=== PATIENT | male | born 1975 | race African-American/Black ===

== ENCOUNTER 2017-03-27 04:43 | Emergency (ER) | payer SELFPAY ==
[2017-03-27 04:49] VITALS: BP 136/97; BMI 21.5
--- NOTE | 2017-03-27 05:06 | DR.GENAD ---
HPI - PCP Primary Care Physician: DONTE - HPI Comment HPI Comment: HE DENIED USE OF ILLICIT DRUGS. NO FEVER. VITAL SIGNS IN ED ARE WITHIN NORMAL LIMIT. PATIENT WANT TO STANT UP IN THE EXAM ROOM. HE IS COOPERATIVE. HE IS NOT ON ANY PRESCRIPTION MEDS. NO FAMILY HISTORY OF MENTAL ILLNESS. - Complaint/Symptoms Chief Complaint Doctors Comments: PATIENT IN ED SAID HE IS AFRAID DUE TO WHHAT HE IS FEELING. NUMBNESS TO HIS LOWER EXTREMITY AND SOME NUMBNESS IN THE UPPER BODY. HE FEEL LIKE HE WANT TO SLEEP BUT IF HE SLEEP, HE MIGHT NOT WAKE UP. Chief Complaint:: ANXIETY - Nurses notes reviewed Nurses Notes Review: Yes - Source History Provided: Patient - Mode of Arrival Mode of Arrival: Ambulatory - Timing Onset of Chief Complaint: 03/27/17 Came on: Suddenly - Duration Duration: Constant Duration: Hours - Severity Severity: Moderate PMH - PMH Past Medical History: No Past Surgical History: Yes Surgical History: Other Past Surgical History Comment: SKINGRAFTS FROM [place] - Family History History of Family Medical Conditions: Yes Family Medical History: Diabetes Mellitus, Hypertension - Social History Does patient currently use any type of tobacco product: No Have you used tobacco products in the last 12 months: No Type of Tobacco Use: None Does any household member use tobacco: No Alcohol Use: Heavy Do you use any recreational Drugs:: No Lives With: Family Lives Where: Home - infectious screening In the last 2 months have you had wt loss of >10#?: NO Have you had fever, night sweats or hemotysis?: No Have you traveled outside the country in the last 6 months?: No Isolation: Standard ROS - Review of Systems Constitutional: No Symptoms Reported. negative: Chills, Diaphoresis, Fever, Weakness, Fatigue, Loss of Appetite Eyes: No Symptoms Reported. negative: Eye Pain, Discharge ENTM: No Symptoms Reported. negative: Ear Pain, Nose Discharge, Nose Congestion , Throat Pain Respiratoy: No Symptoms Reported, Short of Breath. negative: Productive Cough, Non-Productive Cough, Wheezing, Hemoptysis Cardiovascular: Chest Pain. negative: Edema, Palpitations Gastrointestinal/Abdominal: Nausea. negative: Abdominal Pain, Vomiting Genitourinary: No Symptoms Reported. negative: Dysuria, Frequency, Hematuria Neurological: Numbness, Paresthesia Musculoskeletal: Muscle Pain Integumentary: negative: Change in Hair/Nails Endocrine: No Symptoms Reported Psychiatric: Anxiety. negative: Hallucinations, Excessive crying, Suicidal All Other Systems: Reviewed and Negative PE - Vital Signs Vitals: Temperature 98.1 F Pulse Rate 82 Respiratory Rate 22 Blood Pressure 136/97 O2 Sat by Pulse Oximetry 99 - General Limitations: No Limitations General Appearance: Alert - Head Head Exam: Normal Inspection - Eyes Eye exam: Normal Appearance - ENT ENT Exam: Normal External Ear Exam External Ear Exam: Normal External Inspection TM/Canal Exam: Bilateral Normal Nose Exam: Normal Nose Exam Mouth Exam: Normal Inspection Throat Exam: Normal Inspection - Neck Neck Exam: Trachea Midline - Chest Chest Inspection: Symmetric Chest Wall Rise - Respiratory Respiratory Exam: Normal Lung Sounds Bilat Respiratory Exam: Bilateral Clear to Auscultation - Abdominal Exam Abdominal Exam: Normal Bowel Sounds, Soft. negative: Tenderness - Extremities Extremities Exam: Normal Inspection - Back Back Exam: Normal Inspection - Neurologic Neurological Exam: Alert, Oriented X3, CN II-XII Intact - Psychiatric Psychiatric Exam: Normal Affect, Normal Mood - Skin Skin Exam: Normal Color MDM - Differential Diagnosis Differential Diagnosis: PARESTHESIA, NUMBNESS, ANXIETY, FEAR Course - Treatment Treatment: OBSERVE PATIENT IN ED. HE SPONTANOUSLY CALM DOWN BACK TO HIS BASE LINE. FEELING BETTER. WILL FOLLOW UP WITH DR. BERG IN HIS OFFICE THIS WEEK. - Education/Counseling Education/Counseling: Patient, Education Educated On: Treatment, Diagnosis, Needs for Follow Up ROR - Labs Reviewed Laboratory Results Reviewed?: Yes Result Diagrams: 03/27/17 05:15 03/27/17 05:15 Laboratory: WBC 9.1 X10^3/uL (3.6-10.0) 03/27/17 05:15 RBC 4.87 X10^6/uL (4.7-6.0) 03/27/17 05:15 Hgb 14.1 g/dL (13.5-18.0) 03/27/17 05:15 Hct 42.0 % (42.0-54.0) 03/27/17 05:15 MCV 86.2 fL (80.0-100.0) 03/27/17 05:15 MCH 28.9 pg (27.0-34.0) 03/27/17 05:15 MCHC 33.5 g/dL (33.0-35.0) 03/27/17 05:15 RDW 14.5 % (11.6-16.5) 03/27/17 05:15 Plt Count 138 X10^3/uL (150.0-450.0) L 03/27/17 05:15 MPV 8.6 fL (7.4-11.0) 03/27/17 05:15 Neut % 66.9 % (42.0-75.0) 03/27/17 05:15 Lymph % 26.3 % (21.0-51.0) 03/27/17 05:15 [place] % 5.4 % (0.0-13.0) 03/27/17 05:15 Eos % 0.6 % (0.9-2.9) L 03/27/17 05:15 Baso % 0.8 % (0.2-1.0) 03/27/17 05:15 Neut # 6.1 x10^3/uL (2.2-4.8) H 03/27/17 05:15 Lymph # 2.4 X10^3/uL (1.3-2.9) 03/27/17 05:15 [place] # 0.5 x10^3/uL (0.3-0.8) 03/27/17 05:15 Eos # 0.1 x10^3/uL (0.0-0.2) 03/27/17 05:15 Baso # 0.1 X10^3/uL (0.0-0.1) 03/27/17 05:15 Absolute Nucleated RBC 0.0 /100WBC 03/27/17 05:15 Sodium 146 mmol/L (136-145) H 03/27/17 05:15 Corrected Sodium 146 mmol/L (136-145) H 03/27/17 05:15 Potassium 3.4 mmol/L (3.5-5.1) L 03/27/17 05:15 Chloride 107 mmol/L (98-107) 03/27/17 05:15 Carbon Dioxide 28.3 mmol/L (21-32) 03/27/17 05:15 BUN 7 mg/dL (7-18) 03/27/17 05:15 Creatinine 1.01 mg/dL (0.70-1.30) 03/27/17 05:15 Est GFR (MDRD) Af Amer > 60 (>60) 03/27/17 05:15 Est GFR (MDRD) Non-Af > 60 (>60) 03/27/17 05:15 Glucose 111 mg/dL (65-99) H 03/27/17 05:15 Calcium 8.3 mg/dL (8.5-10.1) L 03/27/17 05:15 Corrected Calcium TNP 03/27/17 05:15 Total Bilirubin 0.60 mg/dL (0.2-1.0) 03/27/17 05:15 AST 33 Units/L (15-37) 03/27/17 05:15 ALT 26 Units/L (12-78) 03/27/17 05:15 Alkaline Phosphatase 53 Units/L (46-116) 03/27/17 05:15 Total Protein 7.0 g/dL (6.4-8.2) 03/27/17 05:15 Albumin 3.7 g/dL (3.4-5.0) 03/27/17 05:15 Globulin 3.3 g/dL (2.5-4.5) 03/27/17 05:15 Albumin/Globulin Ratio 1.1 Ratio (1.1-2.1) 03/27/17 05:15 Specimen Type Clean catch urine 03/27/17 05:15 Urine Color Yellow (YELLOW) 03/27/17 05:15 Urine Appearance Clear (CLEAR) 03/27/17 05:15 Urine pH 6.0 (5.0 - 8.0) 03/27/17 05:15 Ur Specific [place] 1.025 (1.000-1.030) 03/27/17 05:15 Urine Protein 2+ (NEGATIVE) 03/27/17 05:15 Urine Glucose (UA) Negative (NEGATIVE) 03/27/17 05:15 Urine Ketones Negative (NEGATIVE) 03/27/17 05:15 Urine Occult Blood 4+ (NEGATIVE) 03/27/17 05:15 Urine Nitrite Negative (NEGATIVE) 03/27/17 05:15 Urine Bilirubin Negative (NEGATIVE) 03/27/17 05:15 Urine Urobilinogen 2+ (NORMAL) 03/27/17 05:15 Ur Leukocyte Esterase Negative (NEGATIVE) 03/27/17 05:15 Urine RBC 3-5 /HPF (NEGATIVE) 03/27/17 05:15 Urine WBC 0-3 /HPF (NEGATIVE) 03/27/17 05:15 Ur Squamous Epith Cells Rare /HPF (NEGATIVE) 03/27/17 05:15 Urine Bacteria 1+ /HPF (NEGATIVE) 03/27/17 05:15 Urine Mucus Few /HPF (NEGATIVE) 03/27/17 05:15 Urine Sperm Numerous /HPF (NEGATIVE) 03/27/17 05:15 Ur Culture Indicated? No/not indicated 03/27/17 05:15 Urine Opiates Screen Negative (NEG=<300) 03/27/17 05:15 Urine Methadone Screen Negative (NEG=<300) 03/27/17 05:15 Ur Barbiturates Screen Negative (NEG=<200) 03/27/17 05:15 Ur Phencyclidine Scrn Negative (NEG=<25) 03/27/17 05:15 Ur Amphetamines Screen Negative (NEG=<1000) 03/27/17 05:15 U Benzodiazepines Scrn Negative (NEG=<200) 03/27/17 05:15 Urine Cocaine Screen Negative (NEG=<300) 03/27/17 05:15 U Marijuana (THC) Screen Negative (NEG=<50) 03/27/17 05:15 - XRAY XRAY Interpreted by: Radiologist XRAY Findings: REPORT DISCUSS WITH PATIENT. - Diagnosis Discharge Problem: Paresthesia, Numbness and tingling, Anxiety, Paresthesia, Numbness and tingling in left upper extremity, Paresthesia, Paresthesia of both lower extremities - Discharge Plan Disposition: 01 HOME, SELF-CARE Condition: Stable - Follow ups/Referrals Follow ups/Referrals: RAVEN BERG [STAFF PHYSICIAN] - 03/28/17 NFD,None [Primary Care Provider] - 03/28/17 - Instructions Instructions: Generalized Anxiety Disorder Additional Instructions: RETURN TO ED IF WORSE.
[2017-03-27 05:22] LABS: BASOPHILS # (AUTO) 0.1 X10^3/uL (0.0-0.1); BASOPHILS % (AUTO) 0.8 % (0.2-1.0); EOSINOPHILS # (AUTO) 0.1 x10^3/uL (0.0-0.2); EOSINOPHILS % (AUTO) 0.6 % (0.9-2.9); HEMOGLOBIN 14.1 g/dL (13.5-18.0); LYMPHOCYTES # (AUTO) 2.4 X10^3/uL (1.3-2.9); LYMPHOCYTES % (AUTO) 26.3 % (21.0-51.0); MEAN CORPUSCULAR HEMOGLOBIN 28.9 pg (27.0-34.0); MEAN CORPUSCULAR HGB CONC 33.5 g/dL (33.0-35.0); MEAN CORPUSCULAR VOLUME 86.2 fL (80.0-100.0); MEAN PLATELET VOLUME 8.6 fL (7.4-11.0); MONOCYTES # (AUTO) 0.5 x10^3/uL (0.3-0.8); MONOCYTES % (AUTO) 5.4 % (0.0-13.0); NEUTROPHILS # (AUTO) 6.1 x10^3/uL (2.2-4.8); NEUTROPHILS % (AUTO) 66.9 % (42.0-75.0); PLATELET COUNT 138 X10^3/uL (150.0-450.0); RED BLOOD COUNT 4.87 X10^6/uL (4.7-6.0); RED CELL DISTRIBUTION WIDTH 14.5 % (11.6-16.5); WHITE BLOOD COUNT 9.1 X10^3/uL (3.6-10.0)
[2017-03-27 05:27] LABS: BILIRUBIN,URINE NEGATIVE (NEGATIVE); BLOOD/HEMOGLOBIN,URINE 4+ (NEGATIVE); GLUCOSE, URINE NEGATIVE (NEGATIVE); KETONES,URINE NEGATIVE (NEGATIVE); LEUKOCYTE ESTERASE ,URINE NEGATIVE (NEGATIVE); NITRITES,URINE NEGATIVE (NEGATIVE); PROTEIN,URINE 2+ (NEGATIVE); UROBILINOGEN,URINE 2+ (NORMAL)
[2017-03-27 05:33] LABS: ALANINE AMINOTRANSFERASE 26 Units/L (12-78); ALBUMIN 3.7 g/dL (3.4-5.0); ALKALINE PHOSPHATASE 53 Units/L (46-116); ASPARTATE AMINO TRANSFERASE 33 Units/L (15-37); BLOOD UREA NITROGEN 7 mg/dL (7-18); CALCIUM 8.3 mg/dL (8.5-10.1); CARBON DIOXIDE 28.3 mmol/L (21-32); CHLORIDE 107 mmol/L (98-107); COR NA(FOR HYPERGLY) 146 mmol/L (136-145); CREATININE 1.01 mg/dL (0.70-1.30); GLUCOSE 111 mg/dL (65-99); SODIUM 146 mmol/L (136-145); eGFR BLACK RACES > 60 (>60); eGFR NON BLACK RACES > 60 (>60)
[2017-03-27 05:40] LABS: APPEARANCE,URINE CLEAR (CLEAR); BACTERIA,URINE 1+ /HPF (NEGATIVE); COLOR,URINE YELLOW (YELLOW); MUCUS,URINE FEW /HPF (NEGATIVE); SPERM,URINE NUMEROUS /HPF (NEGATIVE); SQUAMOUS EPITHELIAL CELL,UR RARE /HPF (NEGATIVE)
--- NOTE | 2017-03-27 05:49 | CT ---
EXAM: CT BRAIN WITHOUT CONTRAST INDICATION: Altered mental status COMPARISION: No Priors TECHNIQUE: Routine axial CT of the brain was performed without intravenous contrast. FINDINGS: The cerebral and cerebellar cortex are normal. The ventricular system is nondilated. No intra or ext ra-axial mass or hemorrhage. The alston-white junction is preserved. There is no evidence of subacute ischemic change. The basilar cisterns are clear. The skull is intact. The mastoid air cells are clear. IMPRESSION: Normal brain CT examination Reported By:
== END 2017-03-27 06:51 | disposition home or self-care (01) ==
LOC: ER 04:43
DX: F41.8 Other specified anxiety disorders (principal); R20.8 Other disturbances of skin sensation; R20.0 Anesthesia of skin; R20.2 Paresthesia of skin
CPT/HCPCS: 36415; 70450; 80053; 80307; 81001; 85025; 99282; 99283; G0434

== ENCOUNTER 2017-06-17 19:43 | Emergency (ER) | payer SELFPAY ==
--- NOTE | 2017-06-17 19:47 | DR.SEIZA ---
HPI - Time Seen Time seen: 19:45 - HPI Comment HPI Comment: HISTORY BELOW. - Complaints Chief Complaint Doctors Comments: PATIENT SAID HE HAD A SEIZURE. WAS ORIENTED WHEN EMS ARRIVE. NOT ON MEDICATION. HAVE SEIZURE WHEN HE DRINKS ALCOHOL. WAS DRINKING ALCOHOL TODAY. NO SEIZURE CURRENTLY. DENIES N/V OR HEADACHE. - Reviewed Nurses Notes Reviewed: Yes - Source History Provided: Patient, EMS - Mode of Arrival Mode of Arrival: Stretcher - Duration Since Onset: Since Onset Duration: Minutes - Quality Quality: Grand mal - Location Location: Generalized - Context Prior to Seizure:: Normal During Seizure: LOC. negative: Bladder Incontinence, Bowel Incontinence, Tongue Trauma, Head Trauma, Shoulder Trauma Immediately After Seizure: Normal Mentation - Associated Signs and Symptoms Associated Signs and Symptoms:: Nausea PMH - PMH Past Surgical History: Yes Surgical History: Other - Family History Family Medical History: Diabetes Mellitus, Hypertension - Social History Do you use any recreational Drugs:: No ROS - Review of Systems Constitutional: No Symptoms Reported Eyes: No Symptoms Reported ENTM: No Symptoms Reported Respiratoy: No Symptoms Reported Cardiovascular: No Symptoms Reported Gastrointestinal/Abdominal: No Symptoms Reported Genitourinary: No Symptoms Reported Neurological: Seizure Musculoskeletal: Muscle Pain Integumentary: No Symptoms Reported Hematologic/Lymphatic: No Symptoms Reported Endocrine: No Symptoms Reported All Other Systems: Reviewed and Negative PE - Vital Signs Vitals: Pulse Rate 89 Respiratory Rate 20 Blood Pressure 137/89 O2 Sat by Pulse Oximetry 100 - General Limitations: No Limitations General Appearance: Alert - Head Head Exam: Normal Inspection Head Exam Physical: Other (NONE) - Eyes Eye exam: Normal Appearance, PERRL, EOMI. negative: Conjunctival Injection Eyelids: Normal Inspection: Bilateral Pupils: Regular, Round: Bilateral, Reactive: Bilateral Sclera/Conjunctival: Normal Inspection: Bilateral - ENT ENT Exam: Normal External Ear Exam Mouth Exam: Normal Inspection - Neck Neck Exam: Trachea Midline - Chest Chest Inspection: Symmetric Chest Wall Rise - Respiratory Respiratory Exam: Normal Lung Sounds Bilat Respiratory Exam: Bilateral Clear to Auscultation - Cardiovascular Cardiovascular Exam: Regular Rate, Normal Rhythm, Normal Heart Sounds - Abdominal Exam Abdominal Exam: Normal Bowel Sounds, Soft. negative: Tenderness - Extremities Extremities Exam: Normal Inspection - Back Back Exam: Normal Inspection - Neurologic Neurological Exam: Alert, Oriented X3, CN II-XII Intact, Normal Gait, Reflexes Normal. negative: Motor Sensory Deficit Speech: Fluid Speech Cranial Nerve Exam: EOM Function (II, III, IV, ): Normal, Facial Sensation (V) : Normal, Facial Palsy (VII): Normal, Gag reflex (XI): Normal, Spinal Accessory Function (XI): Normal, Tongue Deviation: Normal Motor Strength - LUE: 5/5 Motor Strength - RUE: 5/5 Motor Strength - LLE: 5/5 Motor Strength - RLE: 5/5 Upper Motor Neuron Exam: Babinski Sign: Normal DTR: achilles tendon (L): 4+, achilles tendon (R): 4+, brachioradialis (L): 4+, brachioradialis (R): 4+, Patellar (L): 4+, patellar (R): 4+ - Psychiatric Psychiatric Exam: Normal Affect, Normal Mood - Skin Skin Exam: Normal Color MDM - Differential Diagnosis Differential Diagnosis Comment: SEIZURE, ALCOHOL USE Course - Treatment Treatment: PATIENT SIGN AMA AND LEFT BEFORE EVALUATION COMPLETED. - Education/Counseling Education/Counseling: Patient, Family, Education ROR - Labs Reviewed Laboratory Results Reviewed?: Yes Result Diagrams: 06/17/17 19:54 06/17/17 19:54 Laboratory: WBC 7.7 X10^3/uL (3.6-10.0) 06/17/17 19:54 RBC 4.50 X10^6/uL (4.7-6.0) L 06/17/17 19:54 Hgb 13.1 g/dL (13.5-18.0) L 06/17/17 19:54 Hct 38.3 % (42.0-54.0) L 06/17/17 19:54 MCV 85.2 fL (80.0-100.0) 06/17/17 19:54 MCH 29.1 pg (27.0-34.0) 06/17/17 19:54 MCHC 34.1 g/dL (33.0-35.0) 06/17/17 19:54 RDW 14.3 % (11.6-16.5) 06/17/17 19:54 Plt Count 244 X10^3/uL (150.0-450.0) 06/17/17 19:54 MPV 7.6 fL (7.4-11.0) 06/17/17 19:54 Neut % 61.4 % (42.0-75.0) 06/17/17 19:54 Lymph % 31.1 % (21.0-51.0) 06/17/17 19:54 [place] % 6.3 % (0.0-13.0) 06/17/17 19:54 Eos % 0.3 % (0.9-2.9) L 06/17/17 19:54 Baso % 0.9 % (0.2-1.0) 06/17/17 19:54 Neut # 4.7 x10^3/uL (2.2-4.8) 06/17/17 19:54 Lymph # 2.4 X10^3/uL (1.3-2.9) 06/17/17 19:54 [place] # 0.5 x10^3/uL (0.3-0.8) 06/17/17 19:54 Eos # 0.0 x10^3/uL (0.0-0.2) 06/17/17 19:54 Baso # 0.1 X10^3/uL (0.0-0.1) 06/17/17 19:54 Absolute Nucleated RBC 0.1 /100WBC 06/17/17 19:54 Sodium 145 mmol/L (136-145) 06/17/17 19:54 Corrected Sodium TNP 06/17/17 19:54 Potassium 3.3 mmol/L (3.5-5.1) L 06/17/17 19:54 Chloride 110 mmol/L (98-107) H 06/17/17 19:54 Carbon Dioxide 27.9 mmol/L (21-32) 06/17/17 19:54 BUN 12 mg/dL (7-18) 06/17/17 19:54 Creatinine 1.16 mg/dL (0.70-1.30) 06/17/17 19:54 Est GFR (MDRD) Af Amer > 60 (>60) 06/17/17 19:54 Est GFR (MDRD) Non-Af > 60 (>60) 06/17/17 19:54 Glucose 104 mg/dL (65-99) H 06/17/17 19:54 Calcium 8.2 mg/dL (8.5-10.1) L 06/17/17 19:54 Corrected Calcium TNP 06/17/17 19:54 Magnesium 2.1 mg/dL (1.7-2.9) 06/17/17 19:54 Total Bilirubin 0.30 mg/dL (0.2-1.0) 06/17/17 19:54 AST 20 Units/L (15-37) 06/17/17 19:54 ALT 20 Units/L (12-78) 06/17/17 19:54 Alkaline Phosphatase 59 Units/L (46-116) 06/17/17 19:54 Total Protein 7.0 g/dL (6.4-8.2) 06/17/17 19:54 Albumin 3.7 g/dL (3.4-5.0) 06/17/17 19:54 Globulin 3.3 g/dL (2.5-4.5) 06/17/17 19:54 Albumin/Globulin Ratio 1.1 Ratio (1.1-2.1) 06/17/17 19:54 Specimen Type Clean catch urine 06/17/17 20:48 Urine Color Yellow (YELLOW) 06/17/17 20:48 Urine Appearance Clear (CLEAR) 06/17/17 20:48 Urine pH 5.0 (5.0 - 8.0) 06/17/17 20:48 Ur Specific [place] 1.025 (1.000-1.030) 06/17/17 20:48 Urine Protein 3+ (NEGATIVE) 06/17/17 20:48 Urine Glucose (UA) 2+ (NEGATIVE) 06/17/17 20:48 Urine Ketones Negative (NEGATIVE) 06/17/17 20:48 Urine Occult Blood 4+ (NEGATIVE) 06/17/17 20:48 Urine Nitrite Negative (NEGATIVE) 06/17/17 20:48 Urine Bilirubin Negative (NEGATIVE) 06/17/17 20:48 Urine Urobilinogen Normal (NORMAL) 06/17/17 20:48 Ur Leukocyte Esterase 1+ (NEGATIVE) 06/17/17 20:48 Urine RBC 01 - 04 /HPF (NEGATIVE) 06/17/17 20:48 Urine WBC 03 - 06 /HPF (NEGATIVE) 06/17/17 20:48 Ur Squamous Epith Cells Moderate /HPF (NEGATIVE) 06/17/17 20:48 Amorphous Sediment Trace /HPF (NEGATIVE) 06/17/17 20:48 Urine Bacteria Negative /HPF (NEGATIVE) 06/17/17 20:48 Urine Mucus Moderate /HPF (NEGATIVE) 06/17/17 20:48 Ur Culture Indicated? No/not indicated 06/17/17 20:48 Urine Opiates Screen Negative (NEG=<300) 06/17/17 20:48 Urine Methadone Screen Negative (NEG=<300) 06/17/17 20:48 Ur Barbiturates Screen Negative (NEG=<200) 06/17/17 20:48 Ur Phencyclidine Scrn Negative (NEG=<25) 06/17/17 20:48 Ur Amphetamines Screen Negative (NEG=<1000) 06/17/17 20:48 U Benzodiazepines Scrn Negative (NEG=<200) 06/17/17 20:48 Urine Cocaine Screen Negative (NEG=<300) 06/17/17 20:48 U Marijuana (THC) Screen Negative (NEG=<50) 06/17/17 20:48 Ethyl Alcohol mg/dL 414 mg/dL (0-19.9) H 06/17/17 19:54 - Diagnosis Discharge Problem: Seizure Alcohol intoxication Qualifiers: Complication of substance-induced condition: uncomplicated Qualified Code(s): F10.920 - Alcohol use, unspecified with intoxication, uncomplicated - Discharge Plan Disposition: AGAINST MEDICAL ADVICE Condition: Stable - Follow ups/Referrals Follow ups/Referrals: NFD,None [Primary Care Provider] - 3 days - Instructions
[2017-06-17 19:55] VITALS: BP 137/89; BMI 22.1
[2017-06-17] MEDS ORDERED: NS 1000 ML 1,000 ML ONE (19:57)
[2017-06-17] MEDS ORDERED: ZOFRAN INJ 4 MG VIAL ONE (19:58)
[2017-06-17] MEDS ORDERED: NS 1000 ML 1,000 ML IV ONE (20:00)
[2017-06-17 20:04] LABS: BASOPHILS # (AUTO) 0.1 X10^3/uL (0.0-0.1); BASOPHILS % (AUTO) 0.9 % (0.2-1.0); EOSINOPHILS % (AUTO) 0.3 % (0.9-2.9); HEMATOCRIT 38.3 % (42.0-54.0); HEMOGLOBIN 13.1 g/dL (13.5-18.0); LYMPHOCYTES # (AUTO) 2.4 X10^3/uL (1.3-2.9); LYMPHOCYTES % (AUTO) 31.1 % (21.0-51.0); MEAN CORPUSCULAR HEMOGLOBIN 29.1 pg (27.0-34.0); MEAN CORPUSCULAR HGB CONC 34.1 g/dL (33.0-35.0); MEAN CORPUSCULAR VOLUME 85.2 fL (80.0-100.0); MEAN PLATELET VOLUME 7.6 fL (7.4-11.0); MONOCYTES # (AUTO) 0.5 x10^3/uL (0.3-0.8); MONOCYTES % (AUTO) 6.3 % (0.0-13.0); NEUTROPHILS # (AUTO) 4.7 x10^3/uL (2.2-4.8); NEUTROPHILS % (AUTO) 61.4 % (42.0-75.0); PLATELET COUNT 244 X10^3/uL (150.0-450.0); RED CELL DISTRIBUTION WIDTH 14.3 % (11.6-16.5); WHITE BLOOD COUNT 7.7 X10^3/uL (3.6-10.0)
[2017-06-17] MEDS ORDERED: ZOFRAN INJ 4 MG VIAL IVP ONE (20:04)
[2017-06-17 20:13] LABS: ALANINE AMINOTRANSFERASE 20 Units/L (12-78); ALBUMIN 3.7 g/dL (3.4-5.0); ALKALINE PHOSPHATASE 59 Units/L (46-116); ASPARTATE AMINO TRANSFERASE 20 Units/L (15-37); BLOOD UREA NITROGEN 12 mg/dL (7-18); CALCIUM 8.2 mg/dL (8.5-10.1); CARBON DIOXIDE 27.9 mmol/L (21-32); CHLORIDE 110 mmol/L (98-107); CREATININE 1.16 mg/dL (0.70-1.30); GLUCOSE 104 mg/dL (65-99); MAGNESIUM 2.1 mg/dL (1.7-2.9); SODIUM 145 mmol/L (136-145); eGFR BLACK RACES > 60 (>60); eGFR NON BLACK RACES > 60 (>60)
[2017-06-17 21:02] LABS: BILIRUBIN,URINE NEGATIVE (NEGATIVE); BLOOD/HEMOGLOBIN,URINE 4+ (NEGATIVE); GLUCOSE, URINE 2+ (NEGATIVE); KETONES,URINE NEGATIVE (NEGATIVE); LEUKOCYTE ESTERASE ,URINE 1+ (NEGATIVE); NITRITES,URINE NEGATIVE (NEGATIVE); PROTEIN,URINE 3+ (NEGATIVE); UROBILINOGEN,URINE NORMAL (NORMAL)
[2017-06-17 21:11] LABS: APPEARANCE,URINE CLEAR (CLEAR); COLOR,URINE YELLOW (YELLOW)
[2017-06-17 21:22] LABS: SQUAMOUS EPITHELIAL CELL,UR MODERATE /HPF (NEGATIVE)
[2017-06-17 21:23] LABS: AMORPHOUS SEDIMENT,UR TRACE /HPF (NEGATIVE); BACTERIA,URINE NEGATIVE /HPF (NEGATIVE); MUCUS,URINE MODERATE /HPF (NEGATIVE)
[2017-06-17] MEDS ORDERED: MICRO K EXTEN CAP 10 MEQ PO ONE (21:29)
== END 2017-06-17 21:30 | disposition left against medical advice (07) ==
LOC: ER 19:43
DX: R56.9 Unspecified convulsions (principal); F10.920 Alcohol use, unspecified with intoxication, uncomplicated
CPT/HCPCS: 36415; 80053; 80307; 80320; 81001; 83735; 85025; 96365; 96367; 96374; 99283; A4222; G0434; G6040; J2405